=== PATIENT | male | born 1995 | race Caucasian/White ===

== ENCOUNTER 2018-08-09 15:30 | Emergency (ER) | payer OTHER ==
[~2018-08-09] VITALS: Ht 180.3 cm; Wt 126.1 kg
[2018-08-09] MEDS ORDERED: ACETAMINOPHEN-1 EAC1 PO (16:34)
[2018-08-09] MEDS ORDERED: IBUPROFEN 800800 M1 PO (16:35)
[2018-08-09 16:55] VITALS: BP 170/94
== END 2018-08-09 16:56 | disposition home or self-care (01) ==
LOC: M.ERS 15:30
DX: S00.01XA Abrasion of scalp, initial encounter (principal); F90.9 Attention-deficit hyperactivity disorder, unspecified type; F17.210 Nicotine dependence, cigarettes, uncomplicated; W00.0XXA Fall on same level due to ice and snow, initial encounter; Y93.89 Activity, other specified; Y92.89 Other specified places as the place of occurrence of the external cause; Y99.8 Other external cause status